=== PATIENT | male | born 1960 | race Caucasian/White ===

== ENCOUNTER 2024-07-11 13:59 | Emergency (ER) | payer SELFPAY | END 2024-07-11 15:23 | disposition home or self-care (01) | LOC: MW.ED 13:59 | DX: I10 Essential (primary) hypertension (principal); Z77.098 Contact with and (suspected) exposure to other hazardous, chiefly nonmedicinal, chemicals; Z75.3 Unavailability and inaccessibility of health-care facilities | CPT/HCPCS: 93005; 99282; 99284 ==

== ENCOUNTER 2024-12-08 10:54 | Emergency (ER) | payer SELFPAY | END 2024-12-08 11:57 | disposition home or self-care (01) | LOC: MW.ED 10:54 | DX: S49.92XA Unspecified injury of left shoulder and upper arm, initial encounter (principal); I10 Essential (primary) hypertension; W01.0XXA Fall on same level from slipping, tripping and stumbling without subsequent striking against object, initial encounter | CPT/HCPCS: 73030-26-LT; 73030-LT; 99283 ==